=== PATIENT | female | born 1990 | race Caucasian/White ===

== ENCOUNTER → 2018-05-01 | Outpatient (CLI) | payer MEDICAID ==
[~2018-05-01] MED LIST: DEPO-PROVER150 MG/M1 IM; FLAGYL500 MG PO; MOTRIN 600600 MG/TAB PO; PERCOCET 325 MG1 TA2 PO
[2018-05-01 17:30] LABS: BASO % 0.5 % (0.0-2.0); EOS # 0.1 (0.0-0.7); EOS % 1.1 % (0-4.0); GRAN # 4.1 (1.4-6.5); GRAN % 64.3 % (42.2-75.2); HEMATOCRIT 41.3 % (37.0-47.0); HEMOGLOBIN 13.4 g/dl (12.5-16.0); LYMPH # 1.7 (1.2-3.4); LYMPH % 26.1 % (20.0-51.0); MEAN CELL VOLUME 84 fl (80.0-100.0); MEAN CORPUSCULAR HEMOGLOBIN 27 pg (27.0-31.0); MEAN CORPUSCULAR HGB CONC 32 g/dl (33.0-37.0); MEAN PLATELET VOLUME 12.6 fl (7.4-10.4); MONO # 0.5 (0.1-0.6); MONO % 7.8 % (1.7-9.3); PLATELET COUNT 227 K/mm3 (130-400); REDCELL DISTRIBUTION WIDTH-CV 13.6 % (11.5-14.5)
[2018-05-01 17:37] LABS: ALBUMIN 4.3 gm/dL (3.5-5.0); BILIRUBIN,TOTAL 0.5 mg/dL (0.0-1.0); CALCIUM 8.9 mg/dL (8.4-10.2); CREATININE, serum 0.75 mg/dL (0.52-1.25); POTASSIUM 4.3 mmol/L (3.4-5.0); TOTAL PROTEIN 7.4 gm/dL (6.4-8.2)
== END ==
LOC: COL.LAB 10:02
PROVIDERS: Family Medicine
DX: D68.9 Coagulation defect, unspecified (principal); R59.1 Generalized enlarged lymph nodes

== ENCOUNTER 2019-02-27 17:12 | Emergency (ER) | payer MEDICAID ==
[~2019-02-27] VITALS: Ht 165.1 cm; Wt 59.1 kg
[2019-02-27 17:18] VITALS: BP 118/69; PULSE 90; TEMP 98.3
[2019-02-27 17:58] LABS: BASO % 0.5 % (0.0-2.0); EOS # 0.2 (0.0-0.7); EOS % 1.8 % (0-4.0); GRAN # 5.4 (1.4-6.5); HEMOGLOBIN 12.3 g/dl (12.5-16.0); LYMPH # 2.3 (1.2-3.4); MEAN CELL VOLUME 87 fl (80.0-100.0); MEAN CORPUSCULAR HEMOGLOBIN 29 pg (27.0-31.0); MEAN CORPUSCULAR HGB CONC 33 g/dl (33.0-37.0); MEAN PLATELET VOLUME 11.4 fl (7.4-10.4); MONO # 0.6 (0.1-0.6); MONO % 7.3 % (1.7-9.3); PLATELET COUNT 164 K/mm3 (130-400); RED BLOOD COUNT 4.26 M/mm3 (4.10-5.30); REDCELL DISTRIBUTION WIDTH-CV 13.2 % (11.5-14.5)
[2019-02-27 18:09] LABS: HEMATOCRIT 36.9 % (37.0-47.0)
[2019-02-27 18:21] LABS: ALBUMIN 3.7 gm/dL (3.5-5.0); BILIRUBIN,TOTAL 0.2 mg/dL (0.0-1.0); CALCIUM 9.3 mg/dL (8.4-10.2); CREATININE, serum 0.68 (0.52-1.25); TOTAL PROTEIN 6.3 gm/dL (6.4-8.2)
[2019-02-27 18:53] LABS: COLLECTION METHOD CLEAN CATCH
[2019-02-27 19:07] LABS: MUCOUS Present /lpf; PH 5 (5-8); SQUAMOUS EPITHELIAL 20-50 /hpf; URINE APPEARANCE Cloudy; URINE BACTERIA Rare /hpf; URINE BILIRUBIN Negative (NEGATIVE); URINE BLOOD 3+ (NEGATIVE); URINE COLOR Yellow; URINE GLUCOSE Negative (NEGATIVE); URINE KETONE Negative (NEGATIVE); URINE LEUKOCYTE ESTERASE 3+ (NEGATIVE); URINE NITRATE Negative (NEGATIVE); URINE PROTEIN(semi-quant) Negative (NEGATIVE); URINE RBC 20-50 /hpf; URINE UROBILINOGEN Negative (NEGATIVE)
[2019-02-27] MEDS ORDERED: MACROBID 1100 MG/CAP PO (19:24)
== END 2019-02-27 19:22 | disposition home or self-care (01) ==
LOC: COL.ER 17:12
PROVIDERS: Emergency Medicine
DX: O21.1 Hyperemesis gravidarum with metabolic disturbance (principal); O99.331 Smoking (tobacco) complicating pregnancy, first trimester; O23.31 Infections of other parts of urinary tract in pregnancy, first trimester; O20.0 Threatened abortion; Z90.89 Acquired absence of other organs; Z3A.01 Less than 8 weeks gestation of pregnancy; F17.210 Nicotine dependence, cigarettes, uncomplicated

== ENCOUNTER → 2019-03-12 | Outpatient (CLI) | payer SELFPAY ==
[~2019-03-12] MED LIST changes: +MACROBID 1100 MG/CAP PO
== END ==
LOC: COL.RAD 13:15
DX: O03.4 Incomplete spontaneous abortion without complication (principal)